=== PATIENT | male | born 1955 | race American Indian/Alaskan Native ===

== ENCOUNTER 2018-03-17 07:05 | Emergency (ER) | payer OTHER ==
--- NOTE | 2018-03-17 08:22 | XRay Report ---
ROUTINE CHEST, TWO VIEWS: SOB. PA and lateral views demonstrate the heart and mediastinal contour to be of normal size and shape. The lungs are clear and fully expanded and the soft tissues and bony structures are normal. IMPRESSION: Normal study.
[2018-03-17] MEDS ORDERED: NORCO 5/325 PO ONE (09:44)
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
[2018-03-17 11:18] LABS: Bilirubin,Urine NEG (Negative); Blood,Urine NEG (Negative); Color,Urine Straw (Yellow); Protein,Urine <15 mg/dL mg/dL (Negative); Urobilinogen,Urine < 2.0 mg/dL (<2.0)
[2018-03-17 11:19] LABS: WBC,Urine < 1.0 /HPF (0.0-6.0)
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
[2018-03-17 13:03] VITALS: BP 155/88
== END 2018-03-17 13:03 | disposition home or self-care (01) ==
LOC: ED 07:05
DX: S40.812A Abrasion of left upper arm, initial encounter (principal); M79.1 Myalgia; I10 Essential (primary) hypertension; Z87.891 Personal history of nicotine dependence; V49.09XA Driver injured in collision with other motor vehicles in nontraffic accident, initial encounter; Y93.89 Activity, other specified; Y99.8 Other external cause status; Y92.410 Unspecified street and highway as the place of occurrence of the external cause
CPT/HCPCS: 70450; 71046; 72125; 72131; 81001; 82962

== ENCOUNTER 2018-03-20 20:54 | Emergency (ER) | payer OTHER ==
[2018-03-20 22:03] VITALS: BP 150/88
[2018-03-20 22:32] LABS: Basophils % (Auto) 0.4 % (0.0-1.8); Eosinophils # (Auto) 0.3 K/mm3 (0.0-0.4); Eosinophils % (Auto) 3.2 % (0.0-4.3); Hematocrit 43.2 % (35.5-45.6); Hemoglobin 14.2 gm/dl (11.8-15.2); Lymphocytes # (Auto) 1.9 K/mm3 (1.2-5.4); Lymphocytes % (Auto) 21.3 % (13.4-35.0); Mean Corpuscular HGB Conc 33 % (32-34); Mean Corpuscular Hemoglobin 26 pg (28-32); Mean Corpuscular Volume 80 fl (84-94); Monocytes # (Auto) 0.8 K/mm3 (0.0-0.8); Monocytes % (Auto) 8.7 % (0.0-7.3); Platelet Count 146 K/mm3 (140-440); Red Cell Distribution Width 14.9 % (13.2-15.2)
[2018-03-20 22:48] LABS: Alanine Aminotransferase 21 units/L (7-56); Albumin 4.2 g/dL (3.9-5); BUN/Creatinine Ratio 12; Blood Urea Nitrogen 12 mg/dL (9-20); Calcium 9.4 mg/dL (8.4-10.2); Hemolysis Index 10
== END 2018-03-20 22:18 | disposition left against medical advice (07) ==
LOC: ED 20:54
DX: R51 Headache (principal); R07.89 Other chest pain; Z53.21 Procedure and treatment not carried out due to patient leaving prior to being seen by health care provider
CPT/HCPCS: 36415; 80053; 85025; 93005; 93010

== ENCOUNTER 2018-03-21 12:11 | Outpatient (CLI) | payer OTHER ==
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
== END 2018-03-21 12:12 | disposition home or self-care (01) ==
LOC: CT 12:11
PROVIDERS: ATTEND Family Medicine
DX: R51 Headache (principal); I10 Essential (primary) hypertension
CPT/HCPCS: 70450